=== PATIENT | male | born 1950 | race Caucasian/White ===

== ENCOUNTER → 2017-07-13 | Day surgery (SDC) | payer MEDICARE, OTHER ==
[2017-07-12 12:26] VITALS: BMI 23.8
[~2017-07-13] MED LIST: Iopamidol-M 200 41% 20 ML VIAL ONE
[2017-07-13 08:12] VITALS: BP 90/75; TEMP 97.7
--- NOTE | 2017-07-13 10:30 | CT ---
CT LUMBAR SPINE POST MYELOGRAM: DATE: 07/13/17. HISTORY: Lumbar radiculopathy, leg weakness. Low back pain. TECHNIQUE: Contiguous axial CT images are obtained through the lumbar spine from the T11-12 level to the upper s acrum. Sagittal and coronal reformatted images are provided. FINDINGS: There is trace retrolisthesis of L4 on L5. No additional level of subluxation is seen. The vertebra l body heights are within normal limits, and no fracture is identified. There is partial visualizati on of a dorsal column stimulator device which enters the level of the lower thoracic spine and was no t adequately imaged on this exam. T11-12 level: There is minimal disk-osteophyte complex resulting in slight effacement of the ventral subarachnoid space. There is no significant encroachment on the spinal cord, and neural foramina ar e patent. T12-L1 level: There is a mild broad-based disk-osteophyte complex which narrows the ventral subarach noid space. Neural foramina are patent. L1-2 level: The conus medullaris terminates at this level. There is no disk bulge or disk herniatio n. Central spinal canal and neural foramina are patent. L2-3 level: There is no disk bulge or disk herniation. Intraspinal canal and neural foramina are pa tent. L3-4 level: There is minimal disk bulge resulting in effacement of the ventral aspect of the thecal sac. Neural foramina are patent. L4-5 level: As noted above, there is trace retrolisthesis of L4 on L5. There is mild disk-osteophyt e complex at this level. There is no significant narrowing of the central spinal canal. There is ve ry mild bilateral neural foraminal narrowing noted. L5-S1 level: There is loss of intervertebral disk height. There is minimal disk-osteophyte complex. Central spinal canal and neural foramina are patent, although there is mild encroachment on the rig ht neural foramen. IMPRESSION: 1. Trace retrolisthesis of L4 on L5. No additional level of subluxation is seen, and there is no fr acture. 2. Mild degenerative changes in the lower lumbar spine. There is no significant neural foraminal or central canal narrowing at any level. 3. Atherosclerotic vascular calcifications are seen in the abdominal aorta and iliac arteries. POS: [facility]
--- NOTE | 2017-07-13 10:43 | RAD ---
FLUOROSCOPIC GUIDED LUMBAR PUNCTURE: DATE: 07/13/17. HISTORY: Patient with a history of low back pain. The patient states legs give out. Lumbar radiculopathy, le g weakness. FLUOROSCOPY: Total fluoroscopy time is 0.5 minutes and total dose of 51.4 mGy*^m2. TECHNIQUE: After informed consent was obtained, the patient was placed on the fluoroscopy table in the prone pos ition. An area overlying the L2-3 interspace was marked and meticulously prepped and draped in the u sual sterile fashion. The skin and subcutaneous tissues were infiltrated with buffered 1% Lidocaine for local anesthesia. A 22-gauge spinal needle was advanced into the central canal. The inner style tte was removed with a return of clear cerebrospinal fluid. Approximately 8 mL of Isovue-M 200 contr ast was instilled into the thecal sac under fluoroscopic visualization. The inner stylette was replaced, and the needle was removed. Hemostasis was achieved with direct pre ssure, and a dry, sterile dressing was placed. The patient tolerated the procedure well and without immediate complication. The patient was transported to CT scan for additional imaging. The patient tolerated the procedure well and without immediate complication. 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 There is narrowing of the L5-S1 intervertebral disk space. There is trace retrolisthesis of L 4 on L5. Minimal osteophytes are seen scattered within the lower thoracic as well as involving the l umbar spine. No fracture is visualized. There is a dorsal column stimulator device noted in place with power pack overlying the right posteri or lower quadrant and the dorsal column stimulator leads entering above the level of the T11 vertebra l body. Lateral imaging was not obtained at the level of the entry of the dorsal column stimulator l dileep. A lumbar myelogram was successfully performed utilizing fluoroscopic guidance. A total of 8 mL of no n-ionic contrast was instilled into the thecal sac. IMPRESSION: There is a suggestion of slight lucency and sclerosis overlying the right humeral head. Osteonecrosi s cannot be entirely excluded, although this could be artifactual. IMPRESSION: 1. Area of lucency and sclerosis in the right femoral head. Osteonecrosis cannot be entirely exclud ed, but this could be artifactual. AP view of the pelvis with lateral view right hip is recommended for further evaluation. 2. Technically successful fluoroscopic-guided lumbar myelogram. 3. Trace retrolisthesis of L4 on L5. 4. Mild degenerative changes in the lumbar spine. 5. Minimal vascular calcifications in the abdominal aorta and iliac arteries. POS: [facility]
== END ==
LOC: RAD 07:06
PROVIDERS: ATTEND Neurological Surgery
PROC: B02B1ZZ Computerized Tomography (CT Scan) of Spinal Cord using Low Osmolar Contrast (ICD-10-PCS; principal; 2017-07-13)
DX: M54.16 Radiculopathy, lumbar region (principal); Z79.51 Long term (current) use of inhaled steroids; Z79.899 Other long term (current) drug therapy
CPT/HCPCS: 62304; 72132

== ENCOUNTER 2024-12-26 09:33 | Outpatient (CLI) | payer OTHER | END 2024-12-26 09:34 | disposition home or self-care (01) | LOC: RAD 09:33 | PROVIDERS: ATTEND Internal Medicine Critical Care Medicine | DX: R06.00 Dyspnea, unspecified (principal) | CPT/HCPCS: 71046 ==

== ENCOUNTER 2025-02-10 10:15 | Outpatient (CLI) | payer OTHER | END 2025-02-10 10:16 | disposition home or self-care (01) | LOC: PET 10:15 | PROVIDERS: ATTEND Internal Medicine Critical Care Medicine | DX: C34.12 Malignant neoplasm of upper lobe, left bronchus or lung (principal) | CPT/HCPCS: 78815; A9552 ==